=== PATIENT | female | born 1970 | race Caucasian/White ===

== ENCOUNTER 2019-08-22 10:00 | Outpatient (RCR) | payer OTHER, SELFPAY ==
--- NOTE | 2019-07-11 15:37 | HP.PTEVAL_ITS ---
Patient's Visit Information SANTIAGO SOTO is a 48 year old F referred to Physical Therapy by Pierre Pruett DPM with a diagnosis of B plantarfascitis. Date of Evaluation: 07/11/19 Physical Therapist: Jonas Moses, PT, ATC - Visit Plan Frequency: 2-3x /Week Duration: 4 Weeks Plan: B LE stretching, foam roller, stick rollout, graston tech, dry needling, US and HEP - Subjective Findings: Pt reports she has had B foot pain since December of 2018. Pt reports she was working out and running on a treadmill when she began to experience severe pain. Pt notes she does have a PMHx of foot pain intermittently for several years. Pt reports she saw her family and a chiro for a long time, but the pain never fully recovered. Pt reports she also had PT which consisted of mostly stretching and massage. Pt reports her pain is worse at night when she wakes up and attempts to walk on it. Pt reports No sleep difficulty secondary to pain. Pt denies tingling or numbness in LE's at this time. Pt has had xrays and notes she has heel spurs. - Pain B feet Pain Intensity (Out of 10): 5 Pain Intensity Range: 7 - Objective Neuro: B LE sensation is WNL to light touch. B achilles reflex= 2/3. Palpation: sore along bilateral plantarfascias. Adhesions noted with palpation. MMT: B ankle's 5/5 throughout. ROM: L foot DF= 0, PF= 70 degrees; R ankle DF= 0, PF= 60 - Goals Goal 1:: Decrease B foot pain x 50% to aid with increasing tolerance for ambulation Goal Time Frame: 2-4 Weeks Goal 2:: Increase B ankle DF ROM x 10-15 degrees to aid with decreasing B foot pain Goal Time Frame: 2-4 Weeks Goal 3:: I with HEP Goal Time Frame: 2-4 Weeks - Rehabilitation Potential Physical Therapy Diagnosis: B foot pain and limited DF ROM in both feet secondary to B foot plantarfascitis Rehabilitation Potential: Good - Anticipated Interventions Patient/Client Instruction: Educate patient on: Condition, Plan of Care For the Purpose of:: To improve self management Therapeutic Exercise to Include: Flexibilty training, Passive ROM, Active ROM For the Purpose of:: To decrease pain, To increase ROM, To improve muscle performance and motor function Manual Therapy Techniques to Include: Soft tissue mobilization For the Purpose of:: To decrease pain, To increase ROM Cryotherapy (ice pack, ice massage): Yes Ultrasound (thermal/non thermal): Yes For the Purpose of:: To decrease pain Thank you for the opportunity to evaluate your patient. For Medicare and Medicare HMO plans, please review the plan of care and approve it. It will need to be FAXED BACK to us at [phone] for Medicare purposes. For Medicare only, by signing this I certify the plan of care. Please let me know if there are questions or concerns regarding this plan of care. Physician Signature: Date:
--- NOTE | 2020-01-16 14:19 | HP.PT.NRP ---
SANTIAGO SOTO was seen in my office for initial evaluation on 07/11/19. The following Plan of Care was established for this patient: Initial Frequency: 2-3x /Week Initial Duration: 4 Weeks Patient/Client Instruction: Educate patient on: Condition, Plan of Care For the Purpose of:: To improve self management Therapeutic Exercise to Include: Flexibilty training, Passive ROM, Active ROM For the Purpose of:: To decrease pain, To increase ROM, To improve muscle performance and motor function Manual Therapy Techniques to Include: Soft tissue mobilization For the Purpose of:: To decrease pain, To increase ROM Cryotherapy (ice pack, ice massage): Yes Ultrasound (thermal/non thermal): Yes For the Purpose of:: To decrease pain This patient was last seen in our office . Pertinent comments regarding their Physical therapy will appear below: Pt was treated for 10 PT visits for B foot pain through the date of 08/22/19. Pt has not returned through todays date and is discontinued at this time. At this point I will be discontinuing this patient from physical therapy. I would be happy to see this patient again in the future if found appropriate by the physician. Thank you! Jonas Moses, PT, ATC
== END 2019-08-22 19:00 | disposition home or self-care (01) ==
LOC: PT 10:00
PROVIDERS: PCP Preventive Medicine Occupational Medicine; Referring Provider Podiatrist; Visit Provider Podiatrist
DX: M72.2 Plantar fascial fibromatosis (principal)
CPT/HCPCS: 97035; 97110; 97140; 97161

== ENCOUNTER 2023-07-27 11:51 | Day surgery (SDC) | payer BC, SELFPAY ==
[2023-07-27 12:23] VITALS: BP 99/64; PULSE 72; RESP 16; TEMP 36.2; O2SAT 99; BMI 32.1
[2023-07-27] MEDS: Lactated Ringers 1,000 ML 15 ML IV (12:38)
--- NOTE | 2023-07-27 12:45 | EGD_PTH ---
PATHOLOGY RESULTS PATIENT: SANTIAGO AUGUSTINE LOC: EN U#:[id number] AGE/SX: 52/F ROOM: RE07/27/[address]: Dr. Harley Prather DO : 1970 BED: DIS: 07/27/2023 SPEC #: [id number] RECD: 07/28/23 10:02 STATUS: DAI REKamille #: [id number] ERICKA: 07/27/23 12:[address]: Harley Prather DEPT: SURGICAL PATHOLOGY RECD BY: Stefani Max ENTERED: 07/28/23 10:03 SP TYPE: EGD BIOPSY OTHR DR: Dr. Chin Medrano DO Tissues: Duodenum, NOS Procedures: Surgery Specimen Level IV HEADER OPERATION: EGD, biopsy PRE-OP DIAGNOSIS: Abdominal pain TISSUE SUBMITTED: Duodenum biopsy MICROSCOPIC DIAGNOSIS Duodenum, biopsy: Consistent with Rachel's gland hyperplasia. Mild nonspecific chronic inflammation. AM:lizz 07/29/2023 MICROSCOPIC DESCRIPTION Slides are reviewed. GROSS DESCRIPTION Received in fixative is one container labeled with the patient's name and designated duodenum biopsy. The specimen consists of multiple irregular fragments of light shelley soft tissue that in aggregate measure 1.0 x 0.3 x 0.1 cm. The specimen is totally submitted in one cassette. / SJ:lizz 07/28/2023 TC:3 CPT: 47930
--- NOTE | 2023-07-27 12:51 | PCM.HP.BLA ---
History and Physical Date of Admission: 07/27/23 52 F who presents to the office today for PCP OV 2.8. with generalized abdominal discomfort/cramping for several days. No history of colonoscopy or Cologuard and states she will not be pursuing either of these options. Recommend bland diet. ? US complete 10.31.21 visualization obstructed by habitus/bowel gas; mild fatty infiltration of pancreas. Remaining structures without acute/chronic finding. ? Stool 10.02.22 H.Pylori WNL *BGI established 04.20.23 epigastric/LUQ discomfort/burning with sensation of a tremor; PCP diagnosed gastritis who started omeprazole for three months. She has had episodes of severe symptoms to include N/V. PCP did prescribe sucralfate but this was not started as she started feeling better and did not realize it was meant as gastritis treatment. Has started supplement with marshmallow root, licorice, L-arginine, slippery elm, zinc; she felt this was helpful during the time that she was taking it. Also taking mylanta PRN and famotidine PRN. ROS Const Constitutional: No anorexia, fatigue, fever(s), weight change or sleep problems Eyes Eyes: No change in vision ENT ENT: No abnormal hearing, difficulty swallowing, mouth lesions, tongue swelling or throat swelling Resp Respiratory: No cough or shortness of breath Cardio Cardiology: No chest pain at rest, chest pain with exertion, shortness of breath or dyspnea on exertion Gastro GI: No difficulty swallowing Genitourinary-Female: No difficulty urinating or burning urination Musc Musculoskeletal: No joint pain, joint swelling, muscle weakness or decreased muscle mass Skin Skin: No hair loss in leg, yellowing of the eye, itchy eyes, rash, skin ulcer or skin swelling Neuro Neurology: No abnormal hearing, abnormal movements, confusion, unsteady gait/balance or memory loss Psych Psychiatric: No anxiety, No confusion and No memory loss Endo Endocrine: No fatigue or weight change Aller/Imm Allergy/Immunologic: No itchy eyes, throat swelling or tongue swelling Nik/Lymp Hematologic/Lymphatic: No easy bleeding, easy bruising or enlarged lymph nodes Exam Const General: cooperative and comfortable Nutritional Appearance: average body habitus and well nourished HENMT Head: normal to inspection Ears: hearing grossly normal bilaterally Nose: external nose normal Face and sinus: normal facial exam Mouth: oral mucosae normal Throat: posterior oropharynx normal Eyes General: appearance normal, both eyes and all related structures Neck Neck: normal visual inspection Chest Chest palpation & inspection: normal inspection of the chest and normal palpation of entire chest wall Resp Effort & Inspection: normal respiratory effort Auscultation: Bilateral: Clear to Auscultation Cardio Palpation: normal PMI Rate: regular rate Rhythm: regular rhythm GI Inspection: normal to inspection Auscultation: normal bowel sounds Percussion: normal to percussion Palpation: no hepatosplenomegaly Skin General: no rashes or lesions noted Neuro General: patient alert Extrem General: normal to inspection Psych Affect: normal affect Quality Reporting Tobacco Screening ([facility] 138) Smoking Status: Current every day smoker Assessment and Plan Assessment and Plan (1) Abdominal pain: Status: Chronic Qualifiers: Abdominal location: epigastric Qualified Code(s): R10.13 - Epigastric pain Plan: Differential diagnosis for abdominal pain does include peptic ulcer disease, exocrine pancreatic insufficiency, gastritis, H. pylori associated inflammation in the upper GI tract, IBS, sphincter of Oddi syndrome. She will undergo biochemical testing and she will undergo gastric emptying study and upper endoscopy to evaluate upper GI tract. Orders: Orders Hepatobilliary Img w/Pharm Int 04/20/23 R10.9 - Unspecified abdominal pain I have examined the patient and the H&P has been reviewed. There are no clinical changes since date of exam.
[2023-07-27 13:16] VITALS: BP 58/49; PULSE 80; RESP 16; TEMP 36.5; O2SAT 98
[2023-07-27 13:20] VITALS: BP 83/46; PULSE 72; RESP 16; O2SAT 98
[2023-07-27 13:25] VITALS: BP 85/53; PULSE 68; RESP 16; O2SAT 100
--- NOTE | 2023-07-27 13:28 | OP.EGD_ITS ---
Patient Name: Kenisha Dumont Procedure Date: 07/27/2023 12:48 PM Date of : 1970 Age: 52 Procedure: Upper GI endoscopy Indications: Epigastric abdominal pain, Functional Dyspepsia Providers: Harley Prather DO Medicines: Monitored Anesthesia Care Patient Profile: This is a 52 year old female. Refer to note in patient chart for documentation of history and physical. Patient has symptoms of chronic abdominal distention and chronic epigastric abdominal pain. Complications: No immediate complications. Procedure: Pre-Anesthesia Assessment: - Prior to the procedure, a History and Physical was performed, and patient medications and allergies were reviewed. The patient is competent. The risks and benefits of the procedure and the sedation options and risks were discussed with the patient. All questions were answered and informed consent was obtained. Patient identification and proposed procedure were verified by the physician in the pre-procedure area. Mental Status Examination: alert and oriented. Airway Examination: normal oropharyngeal airway and neck mobility. Respiratory Examination: clear to auscultation. CV Examination: normal. Prophylactic Antibiotics: The patient does not require prophylactic antibiotics. Prior Anticoagulants: The patient has taken no anticoagulant or antiplatelet agents. ASA Grade Assessment: II - A patient with mild systemic disease. After reviewing the risks and benefits, the patient was deemed in satisfactory condition to undergo the procedure. The anesthesia plan was to use monitored anesthesia care (MAC). Immediately prior to administration of medications, the patient was re-assessed for adequacy to receive sedatives. The heart rate, respiratory rate, oxygen saturations, blood pressure, adequacy of pulmonary ventilation, and response to care were monitored throughout the procedure. The physical status of the patient was re-assessed after the procedure. After obtaining informed consent, the endoscope was passed under direct vision. Throughout the procedure, the patient's blood pressure, pulse, and oxygen saturations were monitored continuously. The gastroscope was introduced through the mouth, and advanced to the second part of duodenum. The upper GI endoscopy was accomplished without difficulty. The patient tolerated the procedure well. Scope In: 1:08:22 PM Scope Out: 1:12:12 PM Total Procedure Duration Time 0 hours 3 minutes 50 seconds Findings: The examined esophagus was normal. A medium-sized hiatal hernia was present. Grossly there was no abnormality that was seen within the stomach that was seen on upper endoscopy. However there was a very little motility seen in the stomach with the injection of CO2. Also a lot of bile acid in stomach acid with seen in the stomach Patchy mildly erythematous mucosa without active bleeding and with no stigmata of bleeding was found in the duodenal bulb. Biopsies were taken with a cold forceps for histology. Impression: Possible gastroparesis - Normal esophagus. - Medium-sized hiatal hernia. - Erythematous duodenopathy. Biopsied. Recommendation: Gastric emptying study and autoimmune labs - Await pathology results. - Continue present medications. Procedure Code(s): --- Professional --- 86473, Esophagogastroduodenoscopy, flexible, transoral; with biopsy, single or multiple CPT copyright 2021 [employer]. All rights reserved. The codes documented in this report are preliminary and upon slabber review may be revised to meet current compliance requirements. Harley Prather DO 07/27/2023 1:28:03 PM This report has been signed electronically. Number of Addenda: 0 Note Initiated On: 07/27/2023 12:48 PM
--- NOTE | 2023-07-27 13:28 | OP.CCLET_ITS ---
07/27/2023 Chin Medrano [address] [place] [address] Re : Upper GI endoscopy procedure for Kenisha Dumont Dear Dr. Medrano This procedure was performed on Thursday, July 27, 2023. My impressions and recommendations are as follows: Impressions : Possible gastroparesis - Normal esophagus. - Medium-sized hiatal hernia. - Erythematous duodenopathy. Biopsied. Recommendations : Gastric emptying study and autoimmune labs - Await pathology results. - Continue present medications. My findings are described in the full procedure note, which is enclosed. If I can be of further assistance, please feel free to contact me at . Sincerely, Harley Prather, 07/27/2023 1:28:03 PM This report has been signed electronically.
[2023-07-27 13:30] VITALS: BP 82/53; PULSE 66; RESP 17; TEMP 36.1; O2SAT 97
[2023-07-27 13:40] VITALS: BP 97/64; PULSE 64; RESP 16; TEMP 36.3; O2SAT 100
--- OUTSIDE RECORDS SUMMARY | 2023-07-27 16:08 | XMS RPT_ITS | CCD ---
Author Name Unknown Address [address] [facility] [address] [place] [address] Organization [facility] Care Team Providers Care Account Installer Name Role Phone MELISSA MEDRANO Unavailable Unavailable MELISSA MEDRANO Unavailable Unavailable MELISSA MEDRANO DO Primary Care Physician [phone] Ольга Levy PT Unavailable Unavailable Melissa Medrano Primary Care Provider [phone] MELISSA MEDRANO Primary Care Unavailable MELISSA MEDRANO DO Primary Care Physician [phone] DR MAICOL SHAW DO Primary Care Physician [phone] EMMANUEL MONTES MD Attending Unavailable MELISSA MEDRANO DO Primary Care Unavailable MAST OUTSOLE CUTTER MACHINE-MERCHANT MILLER, TOMMIE Attending Unavailmare e MAST OUTSOLE CUTTER MACHINE-MERCHANT MILLER, TOMMIE Admitting UnavailMELISSA Garcia DO Primary Care Unavailable EMMANUEL MONTES MD Attending Unavailable MELISSA MEDRANO DO Primary Care Unavailable MELISSA MEDRANO DO Attending Unavailable MELISSA MEDRANO DO Primary Care Unavailable MELISSA MEDRANO DO Attending Unavailable MELISSA MEDRANO DO Primary Care Unavailable MELISSA MEDRANO DO Attending Unavailable MELISSA MEDRANO DO Primary Care Unavailable EMMANUEL MONTES MD Attending Unavailable MELISSA MEDRANO DO Primary Care Unavailable Allergies Allergy Classification Reported Allergen(s) Allergy Type Date of Onset Reaction(s) Facility (8 sources) Cat; Translations: [CATS] Allergy to substance 2 Cough [facility] (6 sources) Sulfonamides (Antibiotic); Translations: [sulfa drugs] Drug allergy Hives [facility] (5 sources) Doxycycline; Translations: [doxycycline] Drug Allergy 2 Intolerance [facility] (2 sources) Sulfonamides (Antibiotic); Translations: [SULFA (SULFONAMIDE ANTIBIOTICS)] Drug Intolerance 4 Rash, Itching [facility] Work Phone: (3 sources) Coffee Food allergy Nausea (finding) [facility] (2 sources) Egg Food allergy Vomiting (disorder) [facility] Medications Current Medications Medication Drug Class(es) Dates Sig (Normalized) Sig (Original) cephalexin 500 mg oral capsule (1 source) Cephalosporin Antibacterial Start: 03-10-2022 End: 03-20-2022 take 1 capsule by mouth three times daily cephALEXin (KEFLEX) 500 mg capsule Indications: Boil of trunk Take 1 capsule by mouth three times daily for 10 days. 30 capsule 0 03/10/2022 03/20/2022 Active Completed/Discontinued Medications Medication Drug Class(es) Dates Sig (Normalized) Sig (Original) clindamycin 0.01 mg/mg topical gel (5 sources) Lincosamide Antibacterial Start: 05-23-2022 clindamycin 1% topical gel Apply 1 bennie, Topical, BID, 0 Refill(s), 91.4 Start Date: 05/23/22 Status: Ordered Problems Active Problems Problem Classification Problem Date Documented Date Episodic/Chronic Abdominal pain (6 sources) Abdominal pain; Translations: [Right upper quadrant pain] 07-29-2022 Episodic Anxiety disorders (2 sources) Anxiety about body function or health 08-17-2022 Chronic Calculus of urinary tract (6 sources) Kidney stone 03-09-2015 Episodic Chronic kidney disease (2 sources) End stage renal disease; Translations: [End stage renal disease] Onset: 06-02-2022 Chronic Esophageal disorders (6 sources) Gastroesophageal reflux disease without esophagitis 10-15-2021 Chronic Gastritis and duodenitis (5 sources) Gastritis; Translations: [Gastritis, unspecified, without bleeding] Onset: 10-02-2022 07-29-2022 Episodic Mood disorders (6 sources) Depressive disorder 03-09-2015 Chronic Nonspecific chest pain (1 source) Chest pain; Translations: [Chest pain, unspecified] Episodic Other eye disorders (6 sources) Dry eyes 12-18-2020 Episodic Other hereditary and degenerative nervous system conditions (6 sources) Restless legs 02-14-2020 Chronic Other lower respiratory disease (1 source) Apnea 09-30-2022 Episodic Other lower respiratory disease (1 source) Snoring 09-30-2022 Episodic Other non-traumatic joint disorders (1 source) Bilateral wrist pain; Translations: [Pain in right wrist] Episodic Other nutritional; endocrine; and metabolic disorders (1 source) Obese class I 11-25-2022 Chronic Pancreatic disorders (not diabetes) (2 sources) Fatty pancreas 08-17-2022 Episodic Prolapse of female genital organs (4 sources) Posterior vaginal wall prolapse 05-23-2022 Chronic Residual codes; unclassified (6 sources) Chronic back pain 03-09-2015 Episodic Residual codes; unclassified (6 sources) FH: Migraine 03-09-2015 Episodic Residual codes; unclassified (6 sources) Insomnia 02-14-2020 Episodic Residual codes; unclassified (4 sources) Immunization due 01-28-2022 Episodic Skin and subcutaneous tissue infections (1 source) Furuncle of trunk; Translations: [Furuncle of trunk, unspecified] Episodic Spondylosis; intervertebral disc disorders; other back problems (1 source) Pain in the coccyx; Translations: [Sacrococcygeal disorders, not elsewhere classified] Episodic Unclassified (5 sources) Mammogram declined 12-18-2020 Unclassified (11 sources) Patient encounter status 12-18-2020 Past or Other Problems Problem Classification Problem Date Documented Da te Episodic/Chronic Other screening for suspected conditions (not mental disorders or infectious disease) (2 sources) Encounter for screening for malignant neoplasm of cervix; Translations: [Encounter for screening for malignant neoplasm of cervix] Onset: 06-02-2022 Episodic Results Test Name Value Interpretation Reference Range Facil ity Vital Signs Date Time Vital Sign Value Performing Clinician Faci lity 03-10-2022 09:15-0400 Body temperature 97.9 [degF] Serene Pike APRN.CNP Work Phone: [facility] 03-10-2022 09:15-0400 Body weight 92.72 kg Serene Pike APRN.CNP Work Phone: [facility] 03-10-2022 09:15-0400 Diastolic blood pressure 64 mm[Hg] Serene Pike APRN.CNP Work Phone: [facility] 03-10-2022 09:15-0400 Respiratory rate 18 /min Serene Glendy OUTSOLE CUTTER MACHINE.MERCHANT MILLER Work Phone: [facility] 03-10-2022 09:15-0400 SaO2% (BldA) [Mass fraction] 96 % Serene Trammellmerline-Fabio OUTSOLE CUTTER MACHINE.MERCHANT MILLER Work Phone: [facility] 03-10-2022 09:15-0400 Systolic blood pressure 110 mm[Hg] Serene TrammellWendy OUTSOLE CUTTER MACHINE.MERCHANT MILLER Work Phone: [facility] Encounters Encounter Date Encounter Type Care Provider Facility Start: 12-03-2022 End: 12-04-2022 ambulatory MELISSA MEDRANO DO Facility:B Start: 12-03-2022 End: 12-03-2022 Patient encounter procedure MELISSA MEDRANO DO [facility] Start: 10-08-2022 ambulatory MELISSA MEDRANO DO Facil ity:A Start: 10-02-2022 End: 10-07-2022 ambulatory MELISSA BLAISE Facility:B Start: 09-29-2022 End: 09-30-2022 ambulatory EMMANUEL MONTES MD Facility:[facility] Start: 09-29-2022 End: 09-29-2022 Patient encounter procedure EMMANUEL MONTES MD [facility] Start: 08-25-2022 End: 08-26-2022 ambulatory EMMANUEL MONTES MD Facility:B Start: 08-12-2022 End: 08-13-2022 ambulatory TOMMIE MAST OUTSOLE CUTTER MACHINE-MERCHANT MILLER Facility:B Start: 08-12-2022 End: 08-12-2022 Patient encounter procedure TOMMIE MAST OUTSOLE CUTTER MACHINE-MERCHANT MILLER [facility] Start: 06-02-2022 End: 06-07-2022 ambulatory EMMANUEL MONTES MD Facility:B Start: 06-02-2022 End: 06-07-2022 Encounter for gynecological examination (general) (routine) without abnormal findings EMMANUEL MONTES MD Facility: Start: 06-02-2022 End: 06-06-2022 Outreach Lab EMMANUEL MONTES MD [facility] Start: 03-10-2022 End: 03-10-2022 ambulatory MELISSA MEDRANO Facility:[facility] Start: 03-10-2022 End: 03-10-2022 Patient encounter procedure Serene TrammellWendy BECERRAMERCHANT MILLER Work Phone: [facility] Procedures Date Procedure Procedure Detail Performing Clinician section EMMANUEL Ruvalcaba MD H/O: hysterectomy MELISSA RBEWER DO History of tonsillectomy DEREK MONTES MD Ligation of fallopian tube R TIAN BLAISE DO Lithotripsy MELISSA MEDRANO DO Oral surgery (qualifier value) MELISSA MEDRANO DO Plan of Treatment Date Care Activity Detail Author Start: 02-19-2022 Influenza vaccination INFLUENZA (#1) [facility] Start: 12-27-2020 COVID-19 VACCINE (2 - Pfizer series) COVID-19 VACCINE (2 - Pfizer series) [facility] Start: 2020 SHINGRIX VACCINE (1 of 2) SHINGRIX V ACCINE (1 of 2) [facility] Start: 2015 COLOGUARD (FIT-DNA) COLOGUARD (FIT-D NA) [facility] Start: 2015 Colonoscopy COLONOSCOPY [facility] Start: 2015 COLORECTAL CANCER SCREENING COLORECTAL CANCER SCREENING [facility] Start: [address] COLONOGRAPHY [facility] Start: 2015 DIABETES SCREEN DIABETES SCREEN [facility] Start: 2015 FECAL OCCULT BLOOD FECAL OCCULT BLOO D [facility] Start: 2015 LIPID SCREEN LIPID SCREEN [facility] Start: 2015 SIGMOIDOSCOPY SIGMOIDOSCOPY [facility] Start: 2010 Mammography MAMMOGRAM [facility] Start: 2000 HPV TESTING HPV TESTING [facility] Start: 1991 PAP TESTING PAP TESTING [facility] Start: 1989 Urine microalbumin profile DTAP,TDAP ,TD (1 - Tdap) [facility] Start: 1988 HEPATITIS C SCREENING HEPATITIS C SC REENING [facility] Start: 1988 HIV SCREENING HIV SCREENING [facility] Start: 1982 Adult depression scr eening assessment DEPRESSION SCREENING [facility] Start: 1970 HEPATITIS B (1 of 3 - 3-dose series) HEPATITIS B (1 of 3 - 3-dose series) [facility] Immunizations Immunization Date Immunization Notes Care Provider Fa cility 01-25-2022 SARS-CoV-2 mRNA (gwshokfwozl-wnuo-jrxeu se) vaccine EMMANUEL MONTES MD [facility] [place] 01-07-2021 SARS-CoV-2 mRNA (tozinameran) vaccine EMMANUEL MONTES MD [facility] [place] Payers Date Payer Category Payer Unknown [employer] BLUE CARD PPO OOS [id number] 2020-Present [phone] [address] [place] [address] PPO [id number] 2020 Unknown [id number] 2019 Medicaid [employer] [facility] [address]ICA[address] [id number] 2019-Present [phone] [address] [address] [place] [address] Medicaid [id number] 2019 Medicaid [id number] 2017 Private Health Insurance [id number] 1970 Unknown [id number] 1970 Unknown [id number] 1970 Unknown [id number] 1970 Unknown [id number] 1970 Unknown [id number] 1970 Unknown [id number] 1970 Unknown [id number] Social History Date Type Detail Facility Start: 01-09-2019 Tobacco smoking status Never s moked tobacco (finding) [facility] Sex Assigned At Sex [facility] Start: 01-01-2012 Tobacco smoking stat [facility] Ex-smoker [facility] History of tobacco use Current smoker [facility] Start: 01-01-2012 Tobacco use and exposure Smokeless tobacco non-user [facility] Start: 03-10-2022 Alcohol intake Not Asked [facility] Start: 1970 Sex Assigned At Not on file [facility] Start: 02-28-2022 End: 03-10-2022 Exposure to SARS-CoV-2 (event) Not sure [facility] Work Phone: Clinical Notes 03-10-2022 Serene Pike APRN.CNP - 03/10/2022 9:42 AM EDTPatient InstructionsRadiologyLaboratoryRadiologyLaboratoryRadiologyLaboratoryRadiologyLa boratoryRadiology Note Date & Type Note Facility 03-10-2022 Note HNO ID: [id number] Author: Serene Pike APRN.CNP Service: ? Author Type: Nurse Practitioner Type: Progress Notes Filed: 03/10/2022 9:54 AM Note Text: Subjective HPI Kenisha Dumont is a 51 year old female who presents with the following complaints: -Spot on her abdomen that may be infected -Pain in bilateral wrists -tailbone pain. She states the spot on her abdomen has been present for several months and is now tender to palpation and has some surrounding redness. There has been no drainage from the area. She denies fever. She has used mupirocin ointment on the spot. She has noticed pain in her bilateral wrists for the past several months. Worse in right than left. No known injury. Pain is sharp and shooting, worse in the evening. She has some associated tingling/numbness of 4th and 5th fingers in right hand. She has not tried any treatment at home for this. She went down a slide at [employer] and hit her tailbone sometime in the last month. She has had pain since. She bought a donut to sit on and it seems to help. She took an ibuprofen for this once. Denies any difficulty with bowel movement or rectal pain. No bruising or redness at site. Review of Systems Constitutional: Negative for chills and fever. Musculoskeletal: Positive for falls and joint pain. Skin: See HPI Neurological: Positive for tingling and sensory change. Negative for focal weakness and weakness. BP 110/64 Pulse (P) 63 Temp 36.6 ?C (97.9 ?F) (Tympanic) Resp 18 Wt 92.7 kg (204 lb 6.4 oz) LMP 03/10/2017 SpO2 96% PAST MEDICAL HISTORY Diagnosis Date - Chronic depression - Drug-seeking behavior 09/13/15 Dr. Flowers Office - Erosion of oral mucosa hard palate - Fibromyalgia - Granulomatosis Jean's - Renal calculi No past surgical history on file. ALLERGIES Cats, Doxycycline, and Sulfa (Sulfonamide Antibiotics) MEDICATIONS - white petrolatum-mineral oil (SYSTANE NIGHTTIME) 94-3 % ophthalmic ointment Dose = 1 bennie, Ophthalmic, qHS, PRN for dry eyes, 0 Refill(s) - Magnesium Oxide 250 mg magnesium tab mg = tab(s), Oral, qDay, as needed for restless legs, 0 Refill(s) - KOOKINY-RNGN-YDXUS-OREG-CAPRYL ORAL Take by mouth. - MULTIVITS,CA,MINERALS/IRON/FA (MULTI FOR HER ORAL) Take by mouth. - cephALEXin (KEFLEX) 500 mg capsule Take 1 capsule by mouth three times daily for 10 days. - LORazepam (ATIVAN) 0.5 mg tab Take by mouth three times daily as needed. (Patient not taking: Reported on 03/10/2022) - clindamycin (CLEOCIN-T) 1 % gel Apply to affected area twice daily. (Patient not taking: Reported on 03/10/2022) No family history on file. Social History Tobacco Use - Smoking status: Former - Smokeless tobacco: Never Objective Physical Exam Vitals and nursing note reviewed. Constitutional: Appearance: She is obese. Genitourinary: Comments: Patient declines coccyx exam Musculoskeletal: Right wrist: No swelling, tenderness, bony tenderness or crepitus. Normal range of motion. Normal pulse. Comments: Phalen test positive in right wrist Skin: General: Skin is warm and dry. Capillary Refill: Capillary refill takes less than 2 seconds. Findings: Erythema present. No rash. Neurological: Mental Status: She is alert. ASSESSMENT/PLAN: 1. Boil of trunk - ICD9: 680.2, ICD10: L02.229 (primary diagnosis) - warm compresses to area three times daily, 15 minutes per time - CEPHALEXIN 500 MG CAPSULE 2. Bilateral wrist pain - ICD9: 719.43, ICD10: M25.531, M25.532 - suspect carpal tunnel syndrome - Ibuprofen 600 mg three times daily. - ice packs to wrist - if not improving with ibuprofen consider treatment with oral steroid 3. Coccyx pain - ICD9: 724.79, ICD10: M53.3 - Ibuprofen 600 mg three times daily. - Follow-up with your PCP in 3-5 days if symptoms have not improved or sooner if symptoms worsen - Discussed red flags and need for immediate medical evaluation if any occur. - Discussed supportive care treatment with fluids, rest and analgesia. - Discussed expected course of illness Serene Pike APRN.[facility] 03-10-2022 History of Presen t illness Narrative Images from the original note were not included. Subjective HPI Kenisha Dumont is a 51 year old female who presents with the following complaints: -Spot on her abdomen that may be infected -Pain in bilateral wrists -tailbone pain. She states the spot on her abdomen has been present for several months and is now tender to palpation and has some surrounding redness. There has been no drainage from the area. She denies fever. She has used mupirocin ointment on the spot. She has noticed pain in her bilateral wrists for the past several months. Worse in right than left. No known injury. Pain is sharp and shooting, worse in the evening. She has some associated tingling/numbness of 4th and 5th fingers in right hand. She has not tried any treatment at home for this. She went down a slide at [employer] and hit her tailbone sometime in the last month. She has had pain since. She bought a donut to sit on and it seems to help. She took an ibuprofen for this once. Denies any difficulty with bowel movement or rectal pain. No bruising or redness at site. Review of Systems Constitutional: Negative for chills and fever. Musculoskeletal: Positive for falls and joint pain. Skin: See HPI Neurological: Positive for tingling and sensory change. Negative for focal weakness and weakness. BP 110/64 Pulse (P) 63 Temp 36.6 C (97.9 F) (Tympanic) Resp 18 Wt 92.7 kg (204 lb 6.4 oz) LMP 03/10/2017 SpO2 96% PAST MEDICAL HISTORY Diagnosis Date Chronic depression Drug-seeking behavior 09/13/15 Dr. Flowers Office Erosion of oral mucosa hard palate Fibromyalgia Granulomatosis Jean's Renal calculi No past surgical history on file. ALLERGIES Cats, Doxycycline, and Sulfa (Sulfonamide Antibiotics) MEDICATIONS white petrolatum-mineral oil (SYSTANE NIGHTTIME) 94-3 % ophthalmic ointment Dose = 1 bennie, Ophthalmic, qHS, PRN for dry eyes, 0 Refill(s) Magnesium Oxide 250 mg magnesium tab mg = tab(s), Oral, qDay, as needed for restless legs, 0 Refill(s) [id number]-ZCZN-TRUTK-OREG-CAPRYL ORAL Take by mouth. MULTIVITS,CA,MINERALS/IRON/FA (MULTI FOR HER ORAL) Take by mouth. cephALEXin (KEFLEX) 500 mg capsule Take 1 capsule by mouth three times daily for 10 days. LORazepam (ATIVAN) 0.5 mg tab Take by mouth three times daily as needed. (Patient not taking: Reported on 03/10/2022) clindamycin (CLEOCIN-T) 1 % gel Apply to affected area twice daily. (Patient not taking: Reported on 03/10/2022) No family history on file. Social History Tobacco Use Smoking status: Former Smokeless tobacco: Never Objective Physical Exam Vitals and nursing note reviewed. Constitutional: Appearance: She is obese. Genitourinary: Comments: Patient declines coccyx exam Musculoskeletal: Right wrist: No swelling, tenderness, bony tenderness or crepitus. Normal range of motion. Normal pulse. Comments: Phalen test positive in right wrist Skin: General: Skin is warm and dry. Capillary Refill: Capillary refill takes less than 2 seconds. Findings: Erythema present. No rash. Neurological: Mental Status: She is alert. ASSESSMENT/PLAN: 1. Boil of trunk - ICD9: 680.2, ICD10: L02.229 (primary diagnosis) - warm compresses to area three times daily, 15 minutes per time - CEPHALEXIN 500 MG CAPSULE 2. Bilateral wrist pain - ICD9: 719.43, ICD10: M25.531, M25.532 - suspect carpal tunnel syndrome - Ibuprofen 600 mg three times daily. - ice packs to wrist - if not improving with ibuprofen consider treatment with oral steroid 3. Coccyx pain - ICD9: 724.79, ICD10: M53.3 - Ibuprofen 600 mg three times daily. - Follow-up with your PCP in 3-5 days if symptoms have not improved or sooner if symptoms worsen - Discussed red flags and need for immediate medical evaluation if any occur. - Discussed supportive care treatment with fluids, rest and analgesia. - Discussed expected course of illness Serene Pike APRN.ARTEMIO documented in this encounter [facility] 03-10-2022 Instructions Serene Pike APRN.ARTEMIO - 03/10/2022 9:42 AM EDT ASSESSMENT/PLAN: 1. Boil of trunk - ICD9: 680.2, ICD10: L02.229 (primary diagnosis) - warm compresses to area three times daily, 15 minutes per time - CEPHALEXIN 500 MG CAPSULE 2. Bilateral wrist pain - ICD9: 719.43, ICD10: M25.531, M25.532 - suspect carpal tunnel syndrome - Ibuprofen 600 mg three times daily. - ice packs to wrist - if not improving with ibuprofen consider treatment with oral steroid 3. Coccyx pain - ICD9: 724.79, ICD10: M53.3 - Ibuprofen 600 mg three times daily. - Follow-up with your PCP in 3-5 days if symptoms have not improved or sooner if symptoms worsen - Discussed red flags and need for immediate medical evaluation if any occur. - Discussed supportive care treatment with fluids, rest and analgesia. - Discussed expected course of illness Serene Pike APRN.CNP ABSCESS (BOIL): You have a skin abscess, or boil. Boils usually develop when Staph bacteria get into the small glands or hair follicles in the skin and form a pus pocket. After an abscess is properly drained, it will most often heal without any problems. You should not squeeze an abscess or boil to drain it; this can cause the infection to spread to other areas under the skin. Boils are contagious, so you should dispose of soiled bandages carefully and not share your towel or wash cloth with others. Soak the area in warm water for 20-30 minutes 3-4 times daily to help the healing. Oral antibiotics may be needed if the infection is severe or if it seems to be spreading. Please call your doctor if you have increased pain or swelling, chills or fever, red streaks going up the arm or leg, or continued pus drainage after 3-4 days. documented in this encounter [facility] Evaluation + Plan note Future Appointments Appointment Date:10/28/2021 01:45:00 PM Scheduled Provider:MELISSA MEDRANO DO Location:[facility] Appointment Type:PC OV Appointment Date:10/31/2021 01:30:00 PM Scheduled Provider: Location:[facility] Appointment Type:US Abdomen Complete Future Scheduled TestsUS Abdomen Complete 10/31/21 [facility] Evaluation + Plan note Future Appointments Appointment Date:11/19/2021 01:00:00 PM Scheduled Provider:MELISSA MEDRANO DO Location:[facility] Appointment Type:PC OV [facility] Evaluation + Plan note Future Appointments Appointment Date:11/25/2022 11:00:00 AM Scheduled Provider:MELISSA MEDRANO DO Location:[facility] Appointment Type:PC Wellness Annual Future Scheduled TestsPathology Bumper And Painter Request 06/02/22MA Mammo Screening Bilateral w/ Dewey 06/02/22 [facility] Evaluation + Plan note Future Appointments Appointment Date:08/25/2022 03:30:00 PM Scheduled Provider: Location:[facility] Appointment Type:US Pelvis Non-OB W/Transvaginal Appointment Date:11/18/2022 10:00:00 AM Scheduled Provider:MAICOL SHAW DO Location:[facility] Appointment Type:PC OV Follow Up Appointment Date:11/25/2022 11:00:00 AM Scheduled Provider:MELISSA MEDRANO DO Location:[facility] Appointment Type:PC Wellness Annual Future Scheduled TestsPathology Bumper And Painter Request 06/02/22MA Mammo Screening Bilateral w/ Dewey 06/02/22US Pelvis Non-OB W/Transvaginal 08/25/22 [facility] Evaluation + Plan note Future Appointments Appointment Date:09/30/2022 09:30:00 AM Scheduled Provider:MELISSA MEDRANO DO Location:[facility] Appointment Type:PC OV Appointment Date:11/25/2022 11:00:00 AM Scheduled Provider:MELISSA MEDRANO DO Location:[facility] Appointment Type:PC Wellness Annual Future Scheduled TestsPathology Bumper And Painter Request 06/02/22MA Mammo Screening Bilateral w/ Dewey 06/02/22 [facility] Evaluation + Plan note Future Appointments Appointment Date:05/26/2023 02:30:00 PM Scheduled Provider:MELISSA MEDRANO DO Location:[facility] Appointment Type:PC OV Future Scheduled TestsPathology Bumper And Painter Request 06/02/22Complete Blood Count 11/25/22Lipid Profile 11/25/22Complete Metabolic Panel 11/25/22MA Mammo Screening Bilateral w/ Dewey 06/02/22 [facility] Narrative No data available for this section [facility] Discharge instructions No data available for this section [facility] Progress note No data available for this section [facility] Summary Purpose Family History No Family History Records FoundNo Family History Records FoundNo Family History Records Found Advance Directives No Advanced Directives Records FoundNo Advanced Directives Records FoundNo Advanced Directives Records Found Additional Source Comments INFORMATION SOURCE (unrecogn ized section and content) DATE CREATED AUTHOR AUTHOR'S ORGANIZ ATION 03/22/2022 [facility] DATE CREATED AUTHOR AUTHOR'S ORGANIZ ATION 12/26/2022 [facility] ([place]) Care Team (unrecognized sect ion and content) Source Comments (unrecognize d section and content) In the event this informatio n is protected by the Federal Confidentiality of Alcohol and Drug Abuse Patient Records regulations: The Federal rules restrict any use of the information to criminally investigate or prosecute any alcohol or drug abuse patient.[facility] Reason for Visit (unrecogniz ed section and content) Care Team (unrecognized sect ion and content) Care Team Personnel Name: Collins Levy Clergerard Rolon PT Position: P3 Scheduling - Correspondence Representative Advanced Member Role: Other Name: MELISSA MEDRANO DO Position: P4 Physician - Primary Care Member Role: Primary Care Physician Address: Address: [address] [place] [id number] Care Team Related Persons Name: KIMBERLEY NAVAN Name: BRANDY FLORENCIA Name: FLORENCIA NAVA Name: RANDY DUMONT Address: [address] [place], [place] [id number] Name: PHAN DUMONT Address: Home [address] [place], [place] [id number] Care Team Personnel Name: Collins Levy Clerk Ольга SALES Position: P3 Scheduling - Correspondence Representative Advanced Member Role: Other Name: MAICOL SHAW DO Position: P4 Physician - Primary Care Member Role: Primary Care Physician Address: Address: [address] [place] [address] Care Team Related Persons Name: BRANDY FLORENCIA Name: BRANDYFLORENCIA Name: BRANDY FLORENCIA Name: RANDY DUMONT Address: [address] [id number] Name: PHAN DUMONT Address: [address] [id number] [place] FOR RECORDS PERTAINING TO PATIENTS WHO ARE OR HAVE BEEN ENROLLED IN A CHEMICAL DEPENDENCY/SUBSTANCEABUSE PROGRAM, SOME INFORMATION MAY BE OMITTED. This clinical summary was aggregated from multiple sources. Caution should be exercised in using it in the provision of clinical care. This summary normalizes information from multiple sources, and as a consequence, information in this document may materially change the coding, format and clinical context of patient data. In addition, data may be omitted in some cases. CLINICAL DECISIONS SHOULD BE BASED ON THE PRIMARY CLINICAL RECORDS. [facility] [employer] provides no warranty or guarantee of the accuracy or completeness of information in this document.
== END 2023-07-27 14:19 | disposition home or self-care (01) ==
LOC: EN 12:00 → AC 12:02
PROVIDERS: PCP Preventive Medicine Occupational Medicine; Referring Provider Preventive Medicine Occupational Medicine; Visit Provider Internal Medicine Gastroenterology
PROC: 0DJ08ZZ Inspection of Upper Intestinal Tract, Via Natural or Artificial Opening Endoscopic (ICD-10-PCS; CPT 43235; principal; 2023-07-27 12:40)
DX: R10.13 Epigastric pain (principal); K44.9 Diaphragmatic hernia without obstruction or gangrene; F17.200 Nicotine dependence, unspecified, uncomplicated; K29.70 Gastritis, unspecified, without bleeding; K31.89 Other diseases of stomach and duodenum
CPT/HCPCS: 43239; 88305; J7120; J2405

== ENCOUNTER → 2023-07-27 | Outpatient (CLI) | payer BC, SELFPAY ==
[2023-07-27 16:54] LABS: Erythrocyte Sedimentation Rate 10 mm/hr (0-30)
[2023-07-27 16:59] LABS: Vitamin B12 314 pg/mL (211-911)
[2023-07-27 17:35] LABS: CRP < 2.90 mg/L (0.0-3.0)
--- OUTSIDE RECORDS SUMMARY | 2023-07-27 18:17 | XMS RPT_ITS | CCD ---
Author Name Unknown Address [address] [facility] [address] [place] [address] Organization [facility] Care Team Providers Care Manager Critical Care Name Role Phone MELISSA MEDRANO Unavailable Unavailable [...] MELISSA MEDRANO DO Primary Care Unavailable MAST MERCHANDISE MANAGER-TONE ARTIST APPRENTICE, TOMMIE Attending Unavailmare e MAST MERCHANDISE MANAGER-TONE ARTIST APPRENTICE, TOMMIE Admitting UnavailMELISSA Garcia DO Primary Care Unavailable EMMANUEL MONTES MD Attending Unavailable MELSISA MEDRANO DO Primary Care Unavailable MELISSA MEDRANO [...] Translations: [CATS] Allergy to substance 2 Cough [facility] (6 sources) Sulfonamides (Antibiotic); Translations: [sulfa drugs] Drug allergy Hives [facility] (5 sources) Doxycycline; Translations: [doxycycline] Drug Allergy 2 Intolerance [facility] (2 sources) Sulfonamides (Antibiotic); Translations: [SULFA (SULFONAMIDE ANTIBIOTICS)] Drug Intolerance 4 Rash, Itching [facility] Work Phone: (3 sources) Coffee Food allergy Nausea (finding) [facility] (2 sources) Egg Food allergy Vomiting (disorder) [facility] Medications Current Medications Medication Drug Class(es) [...] 97.9 [degF] Serene Pike APRN.CNP Work Phone: [facility] 03-10-2022 09:15-0400 Body weight 92.72 kg Serene Pike APRN.CNP Work Phone: [facility] 03-10-2022 09:15-0400 Diastolic blood pressure 64 mm[Hg] Serene Pike APRN.CNP Work Phone: [facility] 03-10-2022 09:15-0400 Respiratory rate 18 /min Serene Glendy MERCHANDISE MANAGER.TONE ARTIST APPRENTICE Work Phone: [facility] 03-10-2022 09:15-0400 SaO2% (BldA) [Mass fraction] 96 % Serene Trammellmerline-Fabio MERCHANDISE MANAGER.TONE ARTIST APPRENTICE Work Phone: [facility] 03-10-2022 09:15-0400 Systolic blood pressure 110 mm[Hg] Serene TrammellWendy MERCHANDISE MANAGER.TONE ARTIST APPRENTICE Work Phone: [facility] Encounters Encounter Date Encounter Type Care Provider Facility Start: 12-03-2022 End: 12-04-2022 ambulatory MELISSA MEDRANO DO Facility:B Start: 12-03-2022 End: 12-03-2022 Patient encounter procedure MELISSA MEDRANO DO [facility] Start: 10-08-2022 ambulatory MELISSA MEDRANO DO Facil ity:A Start: 10-02-2022 End: 10-07-2022 ambulatory MELISSA BLAISE Facility:B Start: 09-29-2022 End: 09-30-2022 ambulatory EMMANUEL MONTES MD Facility:B Start: 09-29-2022 End: 09-29-2022 Patient encounter procedure EMMANUEL MONTES MD [facility] Start: 08-25-2022 End: 08-26-2022 ambulatory EMMANUEL MONTES MD Facility:B Start: 08-12-2022 End: 08-13-2022 ambulatory TOMMIE MAST MERCHANDISE MANAGER-TONE ARTIST APPRENTICE Facility:B Start: 08-12-2022 End: 08-12-2022 Patient encounter procedure TOMMIE MAST MERCHANDISE MANAGER-TONE ARTIST APPRENTICE [facility] Start: 06-02-2022 End: 06-07-2022 ambulatory EMMANUEL MONTES MD Facility:B Start: 06-02-2022 End: 06-07-2022 Encounter for gynecological examination (general) (routine) without abnormal findings EMMANUEL MONTES MD Facility: Start: 06-02-2022 End: 06-06-2022 Outreach Lab EMMANUEL MONTES MD [facility] Start: 03-10-2022 End: 03-10-2022 ambulatory MELISSA MEDRANO Facility:[facility] Start: 03-10-2022 End: 03-10-2022 Patient encounter procedure Serene TrammellWendy BECERRATONE ARTIST APPRENTICE Work Phone: [facility] Procedures Date Procedure Procedure Detail Performing Clinician section EMMANUEL Ruvalcaba MD H/O: hysterectomy MELISSA BREWER DO History of tonsillectomy DEREK MONTES MD Ligation of fallopian tube R TIAN BLAISE DO Lithotripsy MELISSA MEDRANO DO Oral surgery (qualifier value) MELISSA MEDRANO DO Plan of Treatment Date Care Activity Detail Author Start: 02-19-2022 Influenza vaccination INFLUENZA (#1) [facility] Start: 12-27-2020 COVID-19 VACCINE (2 - Pfizer series) COVID-19 VACCINE (2 - Pfizer series) [facility] Start: 2020 SHINGRIX VACCINE (1 of 2) SHINGRIX V ACCINE (1 of 2) [facility] Start: 2015 COLOGUARD (FIT-DNA) COLOGUARD (FIT-D NA) [facility] Start: 2015 Colonoscopy COLONOSCOPY [facility] Start: 2015 COLORECTAL CANCER SCREENING COLORECTAL CANCER SCREENING [facility] Start: [address] COLONOGRAPHY [facility] Start: 2015 DIABETES SCREEN DIABETES SCREEN [facility] Start: 2015 FECAL OCCULT BLOOD FECAL OCCULT BLOO D [facility] Start: 2015 LIPID SCREEN LIPID SCREEN [facility] Start: 2015 SIGMOIDOSCOPY SIGMOIDOSCOPY [facility] Start: 2010 Mammography MAMMOGRAM [facility] Start: 2000 HPV TESTING HPV TESTING [facility] Start: 1991 PAP TESTING PAP TESTING [facility] Start: 1989 Urine microalbumin profile DTAP,TDAP ,TD (1 - Tdap) [facility] Start: 1988 HEPATITIS C SCREENING HEPATITIS C SC REENING [facility] Start: 1988 HIV SCREENING HIV SCREENING [facility] Start: 1982 Adult depression scr eening assessment DEPRESSION SCREENING [facility] Start: 1970 HEPATITIS B (1 of 3 - 3-dose series) HEPATITIS B (1 of 3 - 3-dose series) [facility] Immunizations Immunization Date Immunization Notes Care Provider Fa cility 01-25-2022 SARS-CoV-2 mRNA (okskqdayguh-hmqz-svvtm se) vaccine EMMANUEL MONTES MD [facility] 01-07-2021 SARS-CoV-2 mRNA (tozinameran) vaccine EMMANUEL MONTES MD [facility] [place] Payers Date Payer Category Payer Unknown [employer] C[employer] PPO OOS [id number] 2020-Present [phone] [address] [place] [address] PPO [id number] 2020 Unknown [id number] 2019 Medicaid [employer] [facility] [place]ICAID [place] [id number] 2019-Present [phone] [address] [address] [place] [address] Medicaid [id number] 2019 Medicaid [id number] 2017 Private Health Insurance [id number] 1970 Unknown [id number] 1970 Unknown [id number] 1970 Unknown [id number] 627 1970 Unknown [id number] 627 1970 Unknown [id number] 627 1970 Unknown [id number] 627 1970 Unknown [id number] 627 Social History Date Type Detail Facility Start: 01-09-2019 Tobacco smoking status Never s moked tobacco (finding) [facility] Sex Assigned At Sex [facility] Start: 01-01-2012 Tobacco smoking stat [facility] Ex-smoker [facility] History of tobacco use Current smoker [facility] Start: 01-01-2012 Tobacco use and exposure Smokeless tobacco non-user [facility] Start: 03-10-2022 Alcohol intake Not Asked [facility] Start: 1970 Sex Assigned At Not on file [facility] Start: 02-28-2022 End: 03-10-2022 Exposure to SARS-CoV-2 (event) Not sure [facility] Work Phone: Clinical Notes 03-10-2022 Serene Pike APRN.CNP - 03/10/2022 9:42 AM EDTPatient InstructionsRadiologyLaboratoryRadiologyLaboratoryRadiologyLaboratoryRadiologyLa boratoryRadiology Note Date & Type Note Facility 03-10-2022 Note HNO ID: [id number] Author: Serene Pike APRN.CNP Service: ? Author [...] this. She went down a slide at [employer] and hit her tailbone sometime in the [...] needed for restless legs, 0 Refill(s) - DHYVSFW-GBVE-PRWWO-OREG-CAPRYL ORAL Take by mouth. - MULTIVITS,CA,MINERALS/IRON/FA (MULTI [...] Discussed expected course of illness Serene Pike APRN.[facility] 03-10-2022 History of Presen t illness Narrative [...] this. She went down a slide at [employer] and hit her tailbone sometime in the [...] as needed for restless legs, 0 Refill(s) SONSFRU-IBJE-UUKLK-OREG-CAPRYL ORAL Take by mouth. MULTIVITS,CA,MINERALS/IRON/FA (MULTI FOR [...] Serene Pike APRN.ARTEMIO documented in this encounter [facility] 03-10-2022 Instructions Serene Pike APRN.ARTEMIO - [...] after 3-4 days. documented in this encounter [facility] Evaluation + Plan note Future Appointments Appointment Date:10/28/2021 01:45:00 PM Scheduled Provider:MELISSA MEDRANO DO Location:[facility] Appointment Type:PC OV Appointment Date:10/31/2021 01:30:00 PM Scheduled Provider: Location:[facility] Appointment Type:US Abdomen Complete Future Scheduled TestsUS Abdomen Complete 10/31/21 [facility] Evaluation + Plan note Future Appointments Appointment Date:11/19/2021 01:00:00 PM Scheduled Provider:MELISSA MEDRANO DO Location:[facility] Appointment Type:PC OV [facility] Evaluation + Plan note Future Appointments Appointment Date:11/25/2022 11:00:00 AM Scheduled Provider:MELISSA MEDRANO DO Location:[facility] Appointment Type:PC Wellness Annual Future Scheduled TestsPathology Spray Machine Tender Request 06/02/22MA Mammo Screening Bilateral w/ Dewey 06/02/22 [facility] Evaluation + Plan note Future Appointments Appointment Date:08/25/2022 03:30:00 PM Scheduled Provider: Location:[facility] Appointment Type:US Pelvis Non-OB W/Transvaginal Appointment Date:11/18/2022 10:00:00 AM Scheduled Provider:MAICOL SHAW DO Location:[facility] Appointment Type:PC OV Follow Up Appointment Date:11/25/2022 11:00:00 AM Scheduled Provider:MELISSA MEDRANO DO Location:[facility] Appointment Type:PC Wellness Annual Future Scheduled TestsPathology Spray Machine Tender Request 06/02/22MA Mammo Screening Bilateral w/ Dewey 06/02/22US Pelvis Non-OB W/Transvaginal 08/25/22 [facility] Evaluation + Plan note Future Appointments Appointment Date:09/30/2022 09:30:00 AM Scheduled Provider:MELISSA MEDRANO DO Location:[facility] Appointment Type:PC OV Appointment Date:11/25/2022 11:00:00 AM Scheduled Provider:MELISSA MEDRANO DO Location:[facility] Appointment Type:PC Wellness Annual Future Scheduled TestsPathology Spray Machine Tender Request 06/02/22MA Mammo Screening Bilateral w/ Dewey 06/02/22 [facility] Evaluation + Plan note Future Appointments Appointment Date:05/26/2023 02:30:00 PM Scheduled Provider:MELISSA MEDRANO DO Location:[facility] Appointment Type:PC OV Future Scheduled TestsPathology Spray Machine Tender Request 06/02/22Complete Blood Count 11/25/22Lipid Profile 11/25/22Complete Metabolic Panel 11/25/22[facility] Mammo Screening Bilateral w/ Dewey 06/02/22 [facility] Narrative No data available for this section [facility] Hospital Discharge instructions No data available for this section [facility] Progress note No data available for this section [facility] Summary Purpose Family History No Family History Records FoundNo Family History Records FoundNo Family History Records Found Advance Directives No Advanced Directives Records FoundNo Advanced Directives Records FoundNo Advanced Directives Records Found Additional Source Comments INFORMATION SOURCE (unrecogn ized section and content) DATE CREATED AUTHOR AUTHOR'S ORGANIZ ATION 03/22/2022 [facility] DATE CREATED AUTHOR AUTHOR'S ORGANIZ ATION 12/26/2022 [facility] ([place]) Care Team (unrecognized sect ion and content) Source Comments (unrecognize d section and content) In the event this informatio n is protected by the Federal Confidentiality of Alcohol and Drug Abuse Patient Records regulations: The Federal rules restrict any use of the information to criminally investigate or prosecute any alcohol or drug abuse patient.[facility] Reason for Visit (unrecogniz ed section and content) Care Team (unrecognized sect ion and content) Care Team Personnel Name: Collins Levy Clergerard Rolon PT Position: P3 Scheduling - Community Chest Officer Advanced Member Role: Other Name: MELISSA MEDRANO DO Position: P4 Physician - Primary Care Member Role: Primary Care Physician Address: Address: [address] [place] [id number] Care Team Related Persons Name: KIMBERLEY NAVAN Name: BRANDY FLORENCIA Name: FLORENCIA NAVA Name: RANDY DUMONT Address: [address] [place], [place] [phone] Name: PHAN DUMONT Address: Home [address] [place], [place] [id number] Care Team Personnel Name: Collins Levy Clerk Ольга SALES Position: P3 Scheduling - Community Chest Officer Advanced Member Role: Other Name: MAICOL SHAW DO Position: P4 Physician - Primary Care Member Role: Primary Care Physician Address: Address: [address] [place] [address] Care Team Related Persons Name: BRANDY FLORENCIA Name: BRANDYFLORENCIA Name: BRANDY FLORENCIA Name: RANDY DUMONT Address: [address] [id number] Name: PHAN DUMONT Address: [address] [id number] US FOR RECORDS PERTAINING TO PATIENTS WHO [...] BE BASED ON THE PRIMARY CLINICAL RECORDS. [facility] [employer] provides no warranty or guarantee of the accuracy or completeness of information in this document.
[2023-08-01 17:07] LABS: Anti-Parietal Cell AB, QN 9.9 Units (0.0-20.0); Chromogranin A 33.8 ng/mL (0.0-101.8); Cytoplasmic Ab (C-ANCA) <1:20 titer (Neg:<1:20); Deamidated Gliadin IgA 10 units (0-19); Deamidated Gliadin IgG 3 units (0-19); Endomysial Antibody IgA Negative (Negative); Gastrin, Serum < 10 pg/mL (0-115); Immunoglobulin A 154 mg/dL (87-352); Immunoglobulin M 71 mg/dL (26-217); Perinuclear Ab (P-ANCA) <1:20 titer (Neg:<1:20); t-Transglutaminase IgA <2 U/mL (0-3)
[2023-08-02 13:07] LABS: Beef <0.10 kU/L (Class 0); Chocolate <0.10 kU/L (Class 0); Codfish <0.10 kU/L (Class 0); Corn 0.39 kU/L (Class I); Egg, Whole <0.10 kU/L (Class 0); Milk (Cow) <0.10 kU/L (Class 0); Mussels <0.10 kU/L (Class 0); Peanut 0.92 kU/L (Class II); Pork <0.10 kU/L (Class 0); Salmon <0.10 kU/L (Class 0); Shrimp <0.10 kU/L (Class 0); Soybean 0.41 kU/L (Class I); Tuna <0.10 kU/L (Class 0); Wheat 0.82 kU/L (Class II)
== END | disposition home or self-care (01) ==
LOC: LAB 14:27
PROVIDERS: PCP Preventive Medicine Occupational Medicine; Referring Provider Internal Medicine Gastroenterology; Visit Provider Internal Medicine Gastroenterology
DX: R10.13 Epigastric pain (principal)
CPT/HCPCS: 36415; 82607; 82746; 82784; 82941; 83516; 85652; 86003; 86005; 86140; 86255; 86256; 86316; 86340

== ENCOUNTER → 2023-08-12 | Outpatient (CLI) | payer BC, SELFPAY ==
--- NOTE | 2023-08-12 10:04 | NM_ITS ---
CLINICAL: 53-year-old female with history of abdominal pain. RADIONUCLIDE HEPATOBILIARY SCINTIGRAPHY COMPARISON: None available FINDINGS: Following the intravenous administration of 5.3 mCi of 99m Tc Mebrofenin, hepatobiliary images reveal:. 1. Relatively prompt and homogeneous radiopharmaceutical concentration is noted by a normal sized liver. No parenchymal defects are identified. 2. Gallbladder activity is identified at 45 minutes post radiopharmaceutical administration. 3. Small intestinal tract is observed at 30 minutes following tracer injection. 4. Washout of the radiopharmaceutical by the hepatic parenchyma appears qualitatively normal. Cholecystokinin (0.02 ug/kg) was administered intravenously over a 30-minute period. The post CCK gallbladder ejection fraction calculated at 20 minutes following Cholecystokinin administration was noted to be 72.0 % (normal greater than 35%). During 30 minutes of post CCK imaging, there is scintigraphic evidence of refilling of the gallbladder. There is post cholecystokinin duodenal-gastric reflux. NM/Hepatobilliary Img w/Pharm Int IMPRESSION: 1. A gallbladder ejection fraction calculated to be greater than 35% following the administration of Cholecystokinin makes the probability of functional hepatobiliary disease (gallbladder dyskinesia) and/or organic hepatobiliary disease (chronic acalculous cholecystitis and/or cystic duct syndrome) to be low. (Koko Comer et al, Journal of Nuclear Medicine 32:1695, 1991). 2. An encountered normal gallbladder ejection fraction with refilling of the gallbladder following CCK administration may represent the presence of Sphincter of Oddi dysfunction. Correlation with Sphincter of Oddi manometry may be of benefit. (Karen and Karen, J Nucl Med 38:1824, 1997). 3. Post cholecystokinin duodenal-gastric reflux is demonstrated. Electronically Signed: Varun Chew DO at 23:39 EST ,
== END | disposition home or self-care (01) ==
PROVIDERS: PCP Preventive Medicine Occupational Medicine; Referring Provider Internal Medicine Gastroenterology; Visit Provider Internal Medicine Gastroenterology
DX: R10.9 Unspecified abdominal pain (principal)
CPT/HCPCS: 78227; A9537; J2805

== ENCOUNTER → 2023-08-17 | Outpatient (CLI) | payer BC, SELFPAY ==
--- NOTE | 2023-08-17 10:36 | NM_ITS ---
CLINICAL: 53-year-old female with history of abdominal pain. SEMI-SOLID PHASE 99m Tc SULFUR COLLOID GASTRIC EMPTYING STUDY COMPARISON: None available FINDINGS: The patient was administered 1.1 mCi of 99m Tc sulfur colloid mixed with oatmeal and consumed per os. Image acquisitions in the anterior-posterior projection were obtained for 60 minutes. There is prompt visualization of the stomach. There is no gastroesophageal reflux identified. The T ? linear fit was calculated to be 29.3 minutes, (Normal: 12-56 minutes). NM/Gastric Emptying Study IMPRESSION: 1. NORMAL 99m Tc sulfur colloid semi-solid phase (oatmeal) gastric emptying imaging examination. A. There is normal and preserved semi-solid phase gastric emptying compared to normal controls. (Shaheed et al, J Nucl Med Tech 38: 186, 2010). Electronically Signed: Varun Chew DO at 23:25 EST ,
--- OUTSIDE RECORDS SUMMARY | 2023-08-17 19:21 | XMS RPT_ITS | CCD ---
Author Name Unknown Address [address] [facility] [address] [place] [address] Organization [facility] Care Team Providers Care Lacquer Mixer Name Role Phone MELISSA MEDRANO Unavailable Unavailable [...] MELISSA MEDRANO DO Primary Care Unavailable MAST FLOOR CARE TECHNICIAN-INVENTORY MANAGEMENT SPECIALIST, TOMMIE Attending Unavailmare e MAST FLOOR CARE TECHNICIAN-INVENTORY MANAGEMENT SPECIALIST, TOMMIE Admitting UnavailMELISSA Garcia DO Primary Care [...] Translations: [CATS] Allergy to substance 2 Cough [facility] (6 sources) Sulfonamides (Antibiotic); Translations: [sulfa drugs] Drug allergy Hives [facility] (5 sources) Doxycycline; Translations: [doxycycline] Drug Allergy 2 Intolerance [facility] (2 sources) Sulfonamides (Antibiotic); Translations: [SULFA (SULFONAMIDE ANTIBIOTICS)] Drug Intolerance 4 Rash, Itching [facility] Work Phone: (3 sources) Coffee Food allergy Nausea (finding) [facility] (2 sources) Egg Food allergy Vomiting (disorder) [facility] Medications Current Medications Medication Drug Class(es) Dates [...] 97.9 [degF] Serene Pike APRN.CNP Work Phone: [facility] 03-10-2022 09:15-0400 Body weight 92.72 kg Serene Pike APRN.CNP Work Phone: [facility] 03-10-2022 09:15-0400 Diastolic blood pressure 64 mm[Hg] Serene Pike APRN.CNP Work Phone: [facility] 03-10-2022 09:15-0400 Respiratory rate 18 /min Serene Glendy FLOOR CARE TECHNICIAN.INVENTORY MANAGEMENT SPECIALIST Work Phone: [facility] 03-10-2022 09:15-0400 SaO2% (BldA) [Mass fraction] 96 % Serene Trammellmerline-Fabio FLOOR CARE TECHNICIAN.INVENTORY MANAGEMENT SPECIALIST Work Phone: [facility] 03-10-2022 09:15-0400 Systolic blood pressure 110 mm[Hg] Serene TrammellWendy FLOOR CARE TECHNICIAN.INVENTORY MANAGEMENT SPECIALIST Work Phone: [facility] Encounters Encounter Date Encounter Type Care Provider Facility Start: 12-03-2022 End: 12-04-2022 ambulatory MELISSA MEDRANO DO Facility:B Start: 12-03-2022 End: 12-03-2022 Patient encounter procedure MELISSA MEDRANO DO [facility] Start: 10-08-2022 ambulatory MELISSA MEDRANO DO Facil ity:A Start: 10-02-2022 End: 10-07-2022 ambulatory MELISSA BLAISE Facility:B Start: 09-29-2022 End: 09-30-2022 ambulatory EMMANUEL MONTES MD Facility:B Start: 09-29-2022 End: 09-29-2022 Patient encounter procedure EMMANUEL MONTES MD [facility] Start: 08-25-2022 End: 08-26-2022 ambulatory EMMANUEL MONTES MD Facility:B Start: 08-12-2022 End: 08-13-2022 ambulatory TOMMIE MAST FLOOR CARE TECHNICIAN-INVENTORY MANAGEMENT SPECIALIST Facility:B Start: 08-12-2022 End: 08-12-2022 Patient encounter procedure TOMMIE MAST FLOOR CARE TECHNICIAN-INVENTORY MANAGEMENT SPECIALIST [facility] Start: 06-02-2022 End: 06-07-2022 ambulatory EMMANUEL MONTES MD Facility:B Start: 06-02-2022 End: 06-07-2022 Encounter for gynecological examination (general) (routine) without abnormal findings EMMANUEL MONTES MD Facility: Start: 06-02-2022 End: 06-06-2022 Outreach Lab EMMANUEL MONTES MD [facility] Start: 03-10-2022 End: 03-10-2022 ambulatory MELISSA MEDRANO Facility:[facility] Start: 03-10-2022 End: 03-10-2022 Patient encounter procedure Serene TrammellWendy BECERRAINVENTORY MANAGEMENT SPECIALIST Work Phone: [facility] Procedures Date Procedure Procedure Detail Performing Clinician section EMMANUEL Ruvalcaba MD H/O: hysterectomy MELISSA BREWER DO History of tonsillectomy DEREK MONTES MD Ligation of fallopian tube R TIAN BLAISE DO Lithotripsy MELISSA MEDRANO DO Oral surgery (qualifier value) MELISSA MEDRANO DO Plan of Treatment Date Care Activity Detail Author Start: 02-19-2022 Influenza vaccination INFLUENZA (#1) [facility] Start: 12-27-2020 COVID-19 VACCINE (2 - Pfizer series) COVID-19 VACCINE (2 - Pfizer series) [facility] Start: 2020 SHINGRIX VACCINE (1 of 2) SHINGRIX V ACCINE (1 of 2) [facility] Start: 2015 COLOGUARD (FIT-DNA) COLOGUARD (FIT-D NA) [facility] Start: 2015 Colonoscopy COLONOSCOPY [facility] Start: 2015 COLORECTAL CANCER SCREENING COLORECTAL CANCER SCREENING [facility] Start: [address] COLONOGRAPHY [facility] Start: 2015 DIABETES SCREEN DIABETES SCREEN [facility] Start: 2015 FECAL OCCULT BLOOD FECAL OCCULT BLOO D [facility] Start: 2015 LIPID SCREEN LIPID SCREEN [facility] Start: 2015 SIGMOIDOSCOPY SIGMOIDOSCOPY [facility] Start: 2010 Mammography MAMMOGRAM [facility] Start: 2000 HPV TESTING HPV TESTING [facility] Start: 1991 PAP TESTING PAP TESTING [facility] Start: 1989 Urine microalbumin profile DTAP,TDAP ,TD (1 - Tdap) [facility] Start: 1988 HEPATITIS C SCREENING HEPATITIS C SC REENING [facility] Start: 1988 HIV SCREENING HIV SCREENING [facility] Start: 1982 Adult depression scr eening assessment DEPRESSION SCREENING [facility] Start: 1970 HEPATITIS B (1 of 3 - 3-dose series) HEPATITIS B (1 of 3 - 3-dose series) [facility] Immunizations Immunization Date Immunization Notes Care Provider Fa cility 01-25-2022 SARS-CoV-2 mRNA (ejoytcrvynx-oehh-amvdq se) vaccine EMMANUEL MONTES MD [facility] [place] 01-07-2021 SARS-CoV-2 mRNA (tozinameran) vaccine EMMANUEL MONTES MD [facility] [place] Payers Date Payer Category Payer Unknown [employer] BLUE C[employer] PPO OOS [id number] 2020-Present [phone] [address] [place] [address] PPO [id number] 2020 Unknown [id number] 2019 Medicaid [employer] [facility] MEDICAID DE [id number] 2019-Present [phone] [address] [address] [place] [address] Medicaid [id number] 2019 Medicaid [id number] 2017 Private Health Insurance [id number] 1970 Unknown [id number] 1970 Unknown [id number] 1970 Unknown [id number] [id number] 1970 Unknown [id number] 627 1970 Unknown [id number] 627 1970 Unknown [id number] 627 1970 Unknown [id number] 627 Social History Date Type Detail Facility Start: 01-09-2019 Tobacco smoking status Never s moked tobacco (finding) [facility] Sex Assigned At Sex [facility] Start: 01-01-2012 Tobacco smoking stat [facility] Ex-smoker [facility] History of tobacco use Current smoker [facility] Start: 01-01-2012 Tobacco use and exposure Smokeless tobacco non-user [facility] Start: 03-10-2022 Alcohol intake Not Asked [facility] Start: 1970 Sex Assigned At Not on file C [facility] Start: 02-28-2022 End: 03-10-2022 Exposure to SARS-CoV-2 (event) Not sure [facility] Work Phone: Clinical Notes 03-10-2022 Serene Pike APRN.CNP - 03/10/2022 9:42 AM EDTPatient InstructionsRadiologyLaboratoryRadiologyLaboratoryRadiologyLaboratoryRadiologyLa boratoryRadiology Note Date & Type Note Facility 03-10-2022 Note HNO ID: [id number] Author: Serene Pike APRN.CNP Service: ? Author [...] this. She went down a slide at [employer] and hit her tailbone sometime in the [...] needed for restless legs, 0 Refill(s) - [id number]-[id number]-VEPLK-OREG-CAPRYL ORAL Take by mouth. - MULTIVITS,CA,MINERALS/IRON/FA (MULTI [...] Discussed expected course of illness Serene Pike APRN.[facility] 03-10-2022 History of Presen t illness Narrative Images from the original note were not included. Subjective HPI Kenihsa Dumont is a 51 year old female [...] this. She went down a slide at [employer] and hit her tailbone sometime in the [...] as needed for restless legs, 0 Refill(s) [id number]-WYYAQ-OREG-CAPRYL ORAL Take by mouth. MULTIVITS,CA,MINERALS/IRON/FA (MULTI FOR [...] Serene Pike APRN.ARTEMIO documented in this encounter [facility] 03-10-2022 Instructions Serene Pike APRN.ARTEMIO - 03/10/2022 [...] after 3-4 days. documented in this encounter [facility] Evaluation + Plan note Future Appointments Appointment Date:10/28/2021 01:45:00 PM Scheduled Provider:MELISSA MEDRANO DO Location[facility] Appointment Type:PC OV Appointment Date:10/31/2021 01:30:00 PM Scheduled Provider: Location:[facility] Appointment Type:US Abdomen Complete Future Scheduled TestsUS Abdomen Complete 10/31/21 [facility] Evaluation + Plan note Future Appointments Appointment Date:11/19/2021 01:00:00 PM Scheduled Provider:MELISSA MEDRANO DO Location:[facility] Appointment Type:PC OV [facility] Evaluation + Plan note Future Appointments Appointment Date:11/25/2022 11:00:00 AM Scheduled Provider:MELISSA MEDRANO DO Location:[facility] Appointment Type:PC Wellness Annual Future Scheduled TestsPathology Party Plan Selling Distributor Request 06/02/22MA Mammo Screening Bilateral w/ Dewey 06/02/22 [facility] Evaluation + Plan note Future Appointments Appointment Date:08/25/2022 03:30:00 PM Scheduled Provider: Location:[facility] Appointment Type:US Pelvis Non-OB W/Transvaginal Appointment Date:11/18/2022 10:00:00 AM Scheduled Provider:MAICOL SHAW DO Location:[facility] Appointment Type:PC OV Follow Up Appointment Date:11/25/2022 11:00:00 AM Scheduled Provider:MELISSA MEDRANO DO Location:[facility] Appointment Type:PC Wellness Annual Future Scheduled TestsPathology Party Plan Selling Distributor Request 06/02/22MA Mammo Screening Bilateral w/ Dewey 06/02/22US Pelvis Non-OB W/Transvaginal 08/25/22 [facility] Evaluation + Plan note Future Appointments Appointment Date:09/30/2022 09:30:00 AM Scheduled Provider:MELISSA MEDRANO DO Location:[facility] Appointment Type:PC OV Appointment Date:11/25/2022 11:00:00 AM Scheduled Provider:MELISSA MEDRANO DO Location:[facility] Appointment Type:PC Wellness Annual Future Scheduled TestsPathology Party Plan Selling Distributor Request 06/02/22MA Mammo Screening Bilateral w/ Dewey 06/02/22 [facility] Evaluation + Plan note Future Appointments Appointment Date:05/26/2023 02:30:00 PM Scheduled Provider:MELISSA MEDRANO DO Location:[facility] Appointment Type:PC OV Future Scheduled TestsPathology Party Plan Selling Distributor Request 06/02/22Complete Blood Count 11/25/22Lipid Profile 11/25/22Complete Metabolic Panel 11/25/22MA Mammo Screening Bilateral w/ Dewey 06/02/22 [facility] Narrative No data available for this section [facility] Hospital Discharge instructions No data available for this section [facility] Progress note No data available for this section [facility] Summary Purpose Family History No Family History Records FoundNo Family History Records FoundNo Family History Records Found Advance Directives No Advanced Directives Records FoundNo Advanced Directives Records FoundNo Advanced Directives Records Found Additional Source Comments INFORMATION SOURCE (unrecogn ized section and content) DATE CREATED AUTHOR AUTHOR'S ORGANIZ ATION 03/22/2022 [facility] DATE CREATED AUTHOR AUTHOR'S ORGANIZ ATION 12/26/2022 [facility] ([place]) Care Team (unrecognized sect ion and content) Source Comments (unrecognize d section and content) In the event this informatio n is protected by the Federal Confidentiality of Alcohol and Drug Abuse Patient Records regulations: The Federal rules restrict any use of the information to criminally investigate or prosecute any alcohol or drug abuse patient.[facility] Reason for Visit (unrecogniz ed section and content) Care Team (unrecognized sect ion and content) Care Team Personnel Name: Collins Levy Clergerard Rolon PT Position: P3 Scheduling - Property Condition Assessor Advanced Member Role: Other Name: MELISSA MEDRANO DO Position: P4 Physician - Primary Care Member Role: Primary Care Physician Address: Address: [address] [place] [id number] Care Team Related Persons Name: KIMBERLEY NAVAN Name: BRANDY FLORENCIA Name: FLORENCIA NAVA Name: RANDY DUMONT Address: [address], [place] [id number] Name: PHAN DUMONT Address: Home [address] [place], [place] [id number] Care Team Personnel Name: Collins Levy Clerk Ольга SALES Position: P3 Scheduling - Property Condition Assessor Advanced Member Role: Other Name: MAICOL SHAW DO Position: P4 Physician - Primary Care Member Role: Primary Care Physician Address: Address: [address] [place] [address] Care Team Related Persons Name: BRANDY FLORENCIA Name: BRANDYFLORENCIA Name: BRANDY FLORENCIA Name: RANDY DUMONT Address: [address] [id number] Name: PHAN DUMONT Address: [address] [id number] US FOR RECORDS PERTAINING TO PATIENTS WHO [...] BE BASED ON THE PRIMARY CLINICAL RECORDS. [facility] [employer] provides no warranty or guarantee of the accuracy or completeness of information in this document.
== END | disposition home or self-care (01) ==
LOC: NM 10:31
PROVIDERS: PCP Preventive Medicine Occupational Medicine; Referring Provider Internal Medicine Gastroenterology; Visit Provider Internal Medicine Gastroenterology
DX: R10.9 Unspecified abdominal pain (principal)
CPT/HCPCS: 78264; A9541

== ENCOUNTER → 2023-11-03 | Outpatient (CLI) | payer BC, SELFPAY ==
--- NOTE | 2023-11-03 15:50 | MRI_ITS ---
Abdominal MRI and MRCP without contrast 11/03/2023 4:17 PM COMPARISON: None CLINICAL HISTORY: RUQ pain TECHNIQUE: Multiplanar and multisequence MR images of the abdomen were obtained with MRCP sequence. Three-dimensional post-processing reconstructions were performed. FINDINGS: Liver: Unremarkable Gallbladder: Few small T2 dark stones are seen. Bile Ducts: Unremarkable Pancreas: Unremarkable Spleen: Unremarkable Adrenal Glands: Unremarkable Kidneys: Unremarkable GI Tract: Unremarkable Lymphadenopathy: Absent Ascites: Absent Bones: No suspicious lesions MRI/MRCP Abdomen without Contrast IMPRESSION: Cholelithiasis without evidence of acute cholecystitis or choledocholithiasis. Electronically Signed: Jay Baker MD at 18:13 EDT ,
== END | disposition home or self-care (01) ==
LOC: MRI 15:45
PROVIDERS: PCP Preventive Medicine Occupational Medicine; Referring Provider Internal Medicine Gastroenterology; Visit Provider Internal Medicine Gastroenterology
DX: R10.11 Right upper quadrant pain (principal)
CPT/HCPCS: 74181